=== PATIENT | female | born 1960 | race Caucasian/White ===

== ENCOUNTER 2017-07-30 17:17 | Emergency (ER) | payer OTHER ==
--- NOTE | 2017-07-30 18:54 | ED Physician Documentation ---
PD HPI SKIN - Stated complaint Stated Complaint: R ARM RASH - Chief complaint Chief Complaint: Heent - History obtained from History obtained from: Patient - History of Present Illness Timing - onset: How many days ago (3 days of increasing redness and swelling right arm and now also small area left leg.) Timing - duration: Days Timing - details: Gradual onset, Still present Location: RUE (forearm), LLE (lower leg) Quality / character: Painful, Discolored (red), Swelling, Draining (mild clear fluid). No: Vesicular Associated symptoms: No: Fever, Myalgias, N/V/D Similar symptoms before: Has not had sx before Recently seen: Not recently seen Review of Systems Constitutional: denies: Fever, Chills, Myalgias GI: denies: Nausea, Vomiting Neurologic: denies: Focal weakness, Numbness PD PAST MEDICAL HISTORY - Past Medical History Past Medical History: No Endocrine/Autoimmune: None Derm: Psoriasis - Past Surgical History Past Surgical History: Yes /[employer]: Dilation and currettage - Present Medications Home Medications: Ambulatory Orders Medication Instructions Recorded Confirmed Chlorhexidine Gluconate [Hibiclens] 10 ml TP DAILY #473 ml 07/30/17 Etanercept [Enbrel] 50 mg SQ OAW 07/30/17 07/30/17 Ibuprofen 200 mg PO BID PRN 07/30/17 07/30/17 Mupirocin 1 applic TP TID #15 oint...g. 07/30/17 Sulfamethox/Trimeth 800/160 1 each PO BID #14 tablet 07/30/17 [Bactrim Ds 800/160] - Allergies Allergies/Adverse Reactions: Allergies Allergy/AdvReac Type Severity Reaction Status Date / Time No Known Drug Allergies Allergy Verified 07/30/17 17:28 - Social History Does the pt smoke?: No Smoking Status: Never smoker Does the pt drink ETOH?: No Does the pt have substance abuse?: No - Immunizations Immunizations are current?: No - POLST Patient has POLST: No PD ED PE NORMAL - Vitals Vital signs reviewed: Yes - General General: Alert and oriented X 3, No acute distress, Well developed/nourished - HEENT HEENT: Pharynx benign - Neck Neck: Supple, no meningeal sign, No adenopathy - Derm Derm: Normal color, Warm and dry (right distal forearm with red area with some drainage. ), Other (right forearm with red area with some skin breakdown superficially, mild clear drainage. LEft lower leg with small red area without drainage. ) - Neuro Neuro: No motor deficit, No sensory deficit Results - Vitals Vitals: Oxygen O2 Source Room air - Labs Labs: Microbiology 07/30/17 18:49 Wound Culture - Preliminary Hand - Right No growth PD MEDICAL DECISION MAKING - ED course Complexity details: considered differential, d/w patient Departure - Departure Disposition: 01 Home, Self Care Clinical Impression: Infected abrasion or friction burn of lower arm Condition: Stable Record reviewed to determine appropriate education?: Yes Instructions: ED Staph Infec Abx Tx Only Prescriptions: Sulfamethox/Trimeth 800/160 [Bactrim Ds 800/160] 1 each PO BID #14 tablet Chlorhexidine Gluconate [Hibiclens] 10 ml TP DAILY #473 ml Mupirocin 1 applic TP TID #15 oint...g. Comments: Cleansed the infected areas twice daily with soap and water and you could soak it in warm water as well. Then apply mupirocin antibiotic ointment. Use Bactrim oral antibiotic twice daily for a week for the infection. With your daily showers use a chlorhexidine as a body wash from head to toe to decrease overall germ load on the scan. Recheck if things are not improved over the next few days. Tylenol or ibuprofen if needed for pains. The culture we obtained full result in 2-3 days and we will call you with the treatment needs changing. Discharge Date/Time: 07/30/17 19:58
[2017-07-30] MEDS ORDERED: MUPIROCIN 2% OINT 1 GM TOP STA (19:12)
[2017-07-30] MEDS ORDERED: SULFAMETH/TRIMETH DS 800/160 MG TABLET PO STA (19:12)
[2017-07-30] MEDS ORDERED: SULFAMETH/TRIMETH DS 800/160 MG TABLET PO ONE (19:38)
[2017-07-30] MEDS ORDERED: MUPIROCIN 2% OINT 1 GM ONE (19:38)
[2017-07-30 20:00] VITALS: BP 169/99
== END 2017-07-30 19:58 | disposition home or self-care (01) ==
LOC: ED 17:17
DX: S50.811A Abrasion of right forearm, initial encounter (principal); S80.812A Abrasion, left lower leg, initial encounter; L08.9 Local infection of the skin and subcutaneous tissue, unspecified; X58.XXXA Exposure to other specified factors, initial encounter
CPT/HCPCS: 87070; 87205; 99283; A9270